=== PATIENT | male | born 1985 | race Caucasian/White ===

== ENCOUNTER 2017-05-20 22:47 | Emergency (ER) | payer BC, OTHER ==
[~2017-05-20] VITALS: Ht 175.3 cm; Wt 68.0 kg
[~2017-05-20 22:47] MED LIST: CYCL5TAB PO; OXYC-360 PO; Z.0.NO CURRENT MEDS
[2017-05-20 22:50] VITALS: BP 160/88; PULSE 75; RESP 16; TEMP 97.3; O2SAT 100
--- NOTE | 2017-05-20 23:23 | PD ---
HPI Chief Complaint: Cardiac Complaint Time Seen by Provider: 23:14 Travel History International Travel<30 days: No Contact w/Intl Traveler<30days: No Traveled to known affect area: No History of Present Illness HPI Patient is a 31-year-old somewhat anxious male presents emergency Department with palpitations. States in total it's been going On for about 5 years but in the past 24-48 hours and feels like is happening much more frequently. Endorses some animal shortness of breath. He is accompanied by his friend who states that she thinks is more nervous than anything else. Denies any chest pain denies any fever denies abdominal pain. He has never been evaluated for this before. States he doesn't have a primary care physician. [facility] Past Medical History Immunizations Current: Yes Social History Alcohol Use: Yes (3X WK) Tobacco Use: No Substance Use: No Allergies-Medications (Allergen,Severity, Reaction): Coded Allergies: bacitracin (Unverified Allergy, Severe, HIVES, 04/21/17) gramicidin D (Unverified Allergy, Severe, HIVES, 04/21/17) mupirocin (Unverified Allergy, Severe, HIVES, 04/21/17) neomycin (Unverified Allergy, Severe, HIVES, 04/21/17) penicillin G (Unverified Allergy, Severe, can't remember reaction as a small child, 04/21/17) polymyxin B (Unverified Allergy, Severe, HIVES, 04/21/17) Reported Meds & Prescriptions Reported Meds & Active Scripts Active Propranolol (Propranolol HCl) 10 Mg Tab 10 Mg PO Q12HR PRN Review of Systems Except as stated in HPI: all other systems reviewed are Neg Physical Exam Narrative GENERAL: Well-developed well-nourished, anxious but in no obvious distress. SKIN: Focused skin assessment warm/dry. HEAD: Atraumatic. Normocephalic. EYES: Pupils equal and round. No scleral icterus. No injection or drainage. ENT: No nasal bleeding or discharge. Mucous membranes pink and moist. NECK: Trachea midline. No JVD. No lymphadenopathy, thyroid smooth. CARDIOVASCULAR: Regular rate and rhythm. No murmur appreciated. No murmurs gallops or rubs. 2+ bilateral equal pulses in all 4 extremity's. RESPIRATORY: No accessory muscle use. Clear to auscultation. Breath sounds equal bilaterally. GASTROINTESTINAL: Abdomen soft, non-tender, nondistended. Hepatic and splenic margins not palpable. MUSCULOSKELETAL: No obvious deformities. No clubbing. No cyanosis. No edema. NEUROLOGICAL: Awake and alert. No obvious cranial nerve deficits. Motor grossly within normal limits. Normal speech. PSYCHIATRIC: Appropriate mood and affect; insight and judgment normal. Data Data Last Documented VS Vital Signs Date Time Temp Pulse Resp B/P (MAP) Pulse Ox O2 Delivery O2 Flow Rate FiO2 05/21/17 01:02 70 17 144/75 (98) 100 05/21/17 00:00 Room Air 05/20/17 22:50 97.3 Orders Orders Electrocardiogram (05/20/17 23:22) Basic Metabolic Panel (Bmp) (05/20/17 23:22) Complete Blood Count With Diff (05/20/17 23:22) D-Dimer (05/20/17 23:22) Magnesium (Mg) (05/20/17 23:22) Troponin I (05/20/17 23:22) Chest, Single Ap (05/20/17 23:22) Ecg Monitoring (05/20/17 23:22) Iv Access Insert/Monitor (05/20/17 23:22) Oximetry (05/20/17 23:22) Oxygen Administration (05/20/17 23:22) Sodium Chloride 0.9% Flush (Ns Flush) (05/20/17 23:30) Thyroid Stimulating Hormone (05/20/17 23:22) Labs Laboratory Tests Test 05/20/17 23:35 White Blood Count 7.1 TH/MM3 Red Blood Count 4.56 MIL/MM3 Hemoglobin 14.9 GM/DL Hematocrit 43.3 % Mean Corpuscular Volume 94.9 FL Mean Corpuscular Hemoglobin 32.8 PG Mean Corpuscular Hemoglobin Concent 34.5 % Red Cell Distribution Width 12.3 % Platelet Count 280 TH/MM3 Mean Platelet Volume 7.8 FL Neutrophils (%) (Auto) 53.0 % Lymphocytes (%) (Auto) 33.2 % Monocytes (%) (Auto) 10.3 % Eosinophils (%) (Auto) 2.7 % Basophils (%) (Auto) 0.8 % Neutrophils # (Auto) 3.8 TH/MM3 Lymphocytes # (Auto) 2.4 TH/MM3 Monocytes # (Auto) 0.7 TH/MM3 Eosinophils # (Auto) 0.2 TH/MM3 Basophils # (Auto) 0.1 TH/MM3 CBC Comment DIFF FINAL Differential Comment D-Dimer Quantitative (PE/DVT) 0.46 MG/L FEU Blood Urea Nitrogen 24 MG/DL Creatinine 1.40 MG/DL Random Glucose 105 MG/DL Calcium Level 8.8 MG/DL Magnesium Level 2.2 MG/DL Sodium Level 139 MEQ/L Potassium Level 4.0 MEQ/L Chloride Level 104 MEQ/L Carbon Dioxide Level 27.5 MEQ/L Anion Gap 8 MEQ/L Estimat Glomerular Filtration Rate 59 ML/MIN Troponin I LESS THAN 0.02 NG/ML Thyroid Stimulating Hormone 3rd Gen 1.600 uIU/ML MDM Medical Decision Making Medical Screen Exam Complete: Yes Emergency Medical Condition: Yes Differential Diagnosis PVCs, arrhythmia, tachycardia, hyperthyroid, lecture led abnormality, ACS highly unlikely, PE is excluded by wells and PERC criteria. Narrative Course Patient roomed emergency department, his EKG is reassuring, QTC is within normal limits. The patient is placed on cardiac monitoring has had a total of 3 PVCs since being in the emergency department for 2 hours. TSH normal, troponin normal, lecture lites normal. Discussed the patient at this time no cause of his palpitations has been identified. Recommended that he follow up with patient accounting representative for consideration of Holter monitoring. He is agreeable. Discussed propranolol when necessary for symptoms and a short course been written for him. He is stable for discharge. His d-dimer is 0.46 which is below institutional cutoffs and therefore negative. Coupled with a very low suspicion for PE I think this is adequate to exclude PE in the risks of radiation outweigh the diagnostic benefits. Diagnosis Primary Impression: Palpitations Referrals: [facility] Ro MD Med/Other Pt SpecificInfo: Prescription(s) given Scripts Propranolol (Propranolol) 10 Mg Tab 10 MG PO Q12HR Y for Palpitations, #20 TAB 0 Refills Prov: Vivek Machuca MD 05/21/17 Disposition: 01 DISCHARGE HOME Condition: Stable Vivek Machuca MD May 20, 2017 23:23
[2017-05-20 23:30] VITALS: BP 141/89; PULSE 72; RESP 17; O2SAT 100
[2017-05-20] MEDS ORDERED: SODIUM CHLORIDE 0.9% FLUSH 10 ML FLUSH IVF PRN (23:30)
[2017-05-20 23:45] VITALS: BP 141/89; PULSE 72; RESP 16; O2SAT 100
[2017-05-20 23:45] LABS: AUTOMATED NEUTROPHIL # 3.8 TH/MM3 (1.8-7.7); BASOPHIL # 0.1 TH/MM3 (0-0.2); BASOPHIL % 0.8 % (0.0-2.0); EOSINOPHIL # 0.2 TH/MM3 (0-0.4); EOSINOPHIL % 2.7 % (0.0-4.0); HEMATOCRIT 43.3 % (39.0-51.0); HEMO FLAGS DIFF FINAL; LYMPH % 33.2 % (9.0-44.0); LYMPHOCYTE # 2.4 TH/MM3 (1.0-4.8); MEAN CELL VOLUME 94.9 FL (80.0-100.0); MEAN CORPUSCULAR HEMOGLOBIN 32.8 PG (27.0-34.0); MEAN CORPUSCULAR HGB CONC 34.5 % (32.0-36.0); MONO % 10.3 % (0.0-8.0); PLATELET COUNT 280 TH/MM3 (150-450); RED BLOOD COUNT 4.56 MIL/MM3 (4.50-5.90); RED CELL DISTRIBUTION WIDTH 12.3 % (11.6-17.2); WHITE BLOOD COUNT 7.1 TH/MM3 (4.0-11.0)
[2017-05-21] VITALS: PULSE 70; RESP 18; O2SAT 100
[2017-05-21 00:02] LABS: ANION GAP 8 MEQ/L (5-15); BICARBONATE 27.5 MEQ/L (21.0-32.0); BLOOD UREA NITROGEN 24 MG/DL (7-18); CHLORIDE 104 MEQ/L (98-107); GLOMERULAR FILTRATION RATE 59 ML/MIN (>89); MAGNESIUM 2.2 MG/DL (1.5-2.5); SODIUM (NA) 139 MEQ/L (136-145)
--- NOTE | 2017-05-21 00:19 | RADRPT ---
EXAM DATE/TIME: 05/20/2017 23:48 [facility] COMPARISON: No previous studies available for comparison. INDICATIONS : Chest discomfort. MEDICAL HISTORY : None. SURGICAL HISTORY : None. ENCOUNTER: Initial ACUITY: 1 day PAIN SCORE: 7/10 LOCATION: Bilateral chest FINDINGS: A single view of the chest demonstrates the lungs to be symmetrically aerated without evidence of mas s, infiltrate or effusion. The cardiomediastinal contours are unremarkable. Osseous structures are intact. CONCLUSION: No acute cardiopulmonary process. Braulio Singh MD on May 21, 2017 at 0:17 Board Certified Radiologist. This report was verified electronically.
[2017-05-21] MEDS ORDERED: PROP10TA6 PO (00:34)
[2017-05-21 01:02] VITALS: BP 144/75
--- NOTE | 2017-05-21 21:06 | EKG ---
Date Performed: 05/20/2017 Time Performed: 23:11:10 PTAGE: 31 years EKG: Sinus rhythm NORMAL ECG NO PREVIOUS TRACING DOCTOR: Javier Garcia Interpretating Date/Time 05/21/2017 21:04:34
== END 2017-05-21 01:16 | disposition home or self-care (01) ==
LOC: NEPE 22:47
DX: R00.2 Palpitations (principal); R06.02 Shortness of breath; R07.89 Other chest pain; Z79.899 Other long term (current) drug therapy
CPT/HCPCS: 71010; 80048; 83735; 84443; 84484; 85025; 85379; 93005; 99285